=== PATIENT | male | born 1945 | race Caucasian/White ===

== ENCOUNTER → 2020-06-25 09:11 | Outpatient (CLI) | payer OTHER, SELFPAY ==
[2020-06-25 17:44] LABS: SARS-CoV-2 RNA PCR Negative
== END ==
PROVIDERS: PCP Nurse Practitioner Family; Visit Provider Internal Medicine Cardiovascular Disease
DX: Z01.812 Encounter for preprocedural laboratory examination (principal); Z20.822 Contact with and (suspected) exposure to COVID-19
CPT/HCPCS: C9803; U0003; U0005

== ENCOUNTER 2020-06-28 01:28 | Day surgery (SDC) | payer OTHER, SELFPAY ==
[2020-06-25 16:01] VITALS: BMI 31.3
[2020-06-28] VITALS (7 sets, daily range): BP systolic 106–146; BP diastolic 65–104; PULSE 55–96; RESP 12–18; TEMP 35.4–35.7; O2SAT 92–96; BMI 32.3
--- NOTE | 2020-06-28 08:30 | ECG_ITS ---
Measurements Intervals [place] Rate: 95 P: [place]: 0 QRS: 1 QRSD: 104 T: 0 QT: 339 QTc: 427 Interpretive Statements ATRIAL FIBRILLATION CANNOT RULE OUT SEPTAL INFARCT, AGE INDETERMINATE BORDERLINE ST-T WAVE ABNORMALITY- INFERIOR LEADS ABNORMAL ECG Electronically Signed On 06-28-2020 9:08:33 CDT by Arik Cunningham D.O.
[2020-06-28 09:12] LABS: Anion Gap 11 mmol/L (8-16); Blood Urea Nitrogen 25 mg/dL (9-20); Calcium 9.4 mg/dL (8.4-10.2); Carbon Dioxide 27 mmol/L (22-30); Chloride 104 mmol/L (98-107); Estimated CRCL calculation 46 ml/min; Estimated Glomerular Filt Rate 45; Glucose 127 mg/dL (75-110); Magnesium 1.7 mg/dL (1.6-2.3); Potassium 4.4 mmol/L (3.4-5.0); Sodium 142 mmol/L (137-145)
--- NOTE | 2020-06-28 10:24 | P.SEDATION_ITS ---
Moderate Sedation Note-Pt Data Patient Data Diagnosis: Atrial fibrillation Present Complaint: Atrial fibrillation Procedure to be performed/Plan: Electrical cardioversion Moderate sedation Allergies Allergy/AdvReac Type Severity Reaction Status Date / Time No Known Allergies Allergy Mild Verified 06/28/20 09:03 Home Medications Medication Instructions Recorded Confirmed Type atorvastatin 10 mg PO DAILY 06/25/20 06/28/20 History benazepril 40 mg PO DAILY 06/25/20 06/28/20 History dronedarone [Multaq] 400 mg PO BID 06/25/20 06/28/20 History ferrous sulfate 325 mg PO DAILY 06/25/20 06/28/20 History metoprolol tartrate 25 mg PO BID 06/25/20 06/28/20 History pantoprazole 40 mg PO DAILY 06/25/20 06/28/20 History rivaroxaban [Xarelto] 20 mg PO DAILY 06/25/20 06/28/20 History tramadol 50 mg PO BID 06/25/20 06/28/20 History Current Medications: Active Medications Sodium Chloride (Normal Saline Iv) 1,000 mls @ 30 mls/hr IV CONT .Q24H PATRICIA Sedation/Anesthesia: No previous sedation/anesthesia problems (including family history). [facility] Past Medical History Medical History (Updated 06/28/20 @ 10:25 by Tank Nicole MD) Paroxysmal atrial fibrillation Social History Social History Smoking status: Never smoker Substance use: never Substance use type: does not use Living arrangements: with family Mod Sed Physical Exam Physical Exam Pre Procedural Exam: Normal: Appearance, Eyes, Ears, Nose, Neck, Throat, Airway, Lungs, Heart Size, Heart Rate, Neuro Exam, Abdomen, Extremities and Skin and Variation: Heart Rhythm (Irregular irregular) Hours since solid foods: 12 Hours since liquid intake: 12 Internal Medicine - PN: Obj Da Vital Signs Vital Signs: Vital Signs - 24 hr 06/28/20 09:05 Temperature 35.4 C L Pulse Rate 96 Respiratory Rate 18 Blood Pressure 146/104 H Pulse Oximetry 96 Meds/Results Medications: Active Medications Generic Name Dose Route Start Last Admin Trade Name Freq PRN Reason Stop Dose Admin Sodium Chloride 1,000 mls @ 30 mls/hr 06/28/20 08:30 Normal Saline Iv IV CONT .Q24H PATRICIA Labs CBC & Chem 7: 06/28/20 08:53 Labs: Laboratory Results - last 24 hr 06/28/20 08:53 Sodium 142 Potassium 4.4 Chloride 104 Carbon Dioxide 27 Anion Gap 11 BUN 25 H Creatinine 1.50 H Estim Creat Clear Calc 46 Estimated GFR 45 L Glucose 127 H Calcium 9.4 Magnesium 1.7 ASA Classification/Sedation ASA Classification/Sedation ASA Class: II Emergent: No Risks: Risks, benefits and alternatives explained and patient/family accepted plan for sedation. Patient re-evaluated immediately prior to sedation.
--- NOTE | 2020-06-28 10:32 | ECG_ITS ---
Measurements Intervals [place] Rate: 51 P: 28 MD: 191 QRS: -3 QRSD: 102 T: -4 QT: 434 QTc: 402 Interpretive Statements SINUS BRADYCARDIA WITH MARKED SINUS ARRHYTHMIA INCOMPLETE RIGHT BUNDLE BRANCH BLOCK DELAYED PRECORDIAL R/S TRANSITION BORDERLINE T WAVE ABNORMALITY- INFERIOR LEADS BORDERLINE ECG Electronically Signed On 06-28-2020 10:39:14 CDT by Arik Cunningham D.O.
--- NOTE | 2020-06-28 10:38 | WPDCARDVER ---
Cardioversion Cardioversion Date of procedure: 06/28/20 Procedure: 1. Electrical cardioversion 2. Moderate sedation Pre-op diagnosis: Atrial fibrillation Post-op diagnosis: same Indications: Atrial fibrillation Description of procedure: After discussing the risks, benefits alternatives of the procedure the patient agreeable via verbal and written informed consent. Risks discussed included shocking into more problematic heart rhythm, adverse reaction to anesthesia, skin irritation or burn, stroke. After establishing continuous production designer, pulse oxygenation serial blood pressure assessments, moderate sedation was initiated and procedure started. Procedure start time 10:28 a.m. Procedure stop time 10:31 a.m. Medications were administered patient was monitored by Adore Morillo RN Complications: None Blood loss: None Sedation: 2 mg of Versed and 50 mcg of fentanyl x1 Findings: Successful mandaen of sinus rhythm from atrial fibrillation using 150 joules of synchronized biphasic energy Conclusion: 1. Successful electrical cardioversion using 100 joules of biphasic synchronized energy 2. Moderate sedation
--- NOTE | 2020-06-28 11:48 | SUR.PHASEII ---
Patient and educated at discharge following post successful CV today. Information provided on procedure, post-procedure care, follow-up care, medication regimen, and moderate sedation. Patient and state he has a previously scheduled follow up appointment for August 06. VSS at time of discharge. PIV removed and dressing applied. Patient and agreeable to plan of care and have no further questions or concerns at this time. Patient to be escorted to vehicle by staff via WC and picked up by his , who is his feeder driver today.
== END 2020-06-28 12:03 | disposition home or self-care (01) ==
PROVIDERS: PCP Nurse Practitioner Family; Visit Provider Internal Medicine Cardiovascular Disease
PROC: 5A2204Z Restoration of Cardiac Rhythm, Single (ICD-10-PCS; principal; 2020-06-28 10:00)
DX: I48.0 Paroxysmal atrial fibrillation (principal); R06.02 Shortness of breath; R06.00 Dyspnea, unspecified; Z79.01 Long term (current) use of anticoagulants; I27.20 Pulmonary hypertension, unspecified; I10 Essential (primary) hypertension
CPT/HCPCS: 36415; 80048; 83735; 92960; 93005; C9803; J2250; J3010; J7030; U0003; U0005

== ENCOUNTER 2020-11-25 02:16 | Day surgery (SDC) | payer OTHER, SELFPAY ==
[2020-11-25] VITALS (12 sets, daily range): BP systolic 96–131; BP diastolic 59–91; PULSE 55–90; RESP 12–25; TEMP 35.8; O2SAT 95–100; BMI 30.7
--- NOTE | 2020-11-25 07:00 | ECG_ITS ---
Measurements Intervals [place] Rate: 77 P: [place]: 0 QRS: -9 QRSD: 98 T: 4 QT: 359 QTc: 407 Interpretive Statements ATRIAL FIBRILLATION DELAYED PRECORDIAL R/S TRANSITION ABNORMAL ECG Electronically Signed On 11-25-2020 8:36:29 CDT by Arik Cunningham D.O.
[2020-11-25 07:45] LABS: Anion Gap 9 mmol/L (8-16); Blood Urea Nitrogen 39 mg/dL (9-20); Calcium 9.7 mg/dL (8.4-10.2); Carbon Dioxide 25 mmol/L (22-30); Chloride 106 mmol/L (98-107); Estimated CRCL calculation 48 ml/min; Estimated Glomerular Filt Rate 49; Glucose 129 mg/dL (65-110); Potassium 5.1 mmol/L (3.4-5.0); Sodium 140 mmol/L (137-145)
[2020-11-25 07:47] LABS: Magnesium 1.7 mg/dL (1.6-2.3)
--- NOTE | 2020-11-25 08:43 | WPDMODSED ---
Moderate Sedation Note-Pt Data Patient Data Diagnosis: Atrial fibrillation Present Complaint: Atrial fibrillation Procedure to be performed/Plan: Moderate sedation Electrical cardioversion Allergies Allergy/AdvReac Type Severity Reaction Status Date / Time No Known Allergies Allergy Mild Verified 11/25/20 07:33 Home Medications Medication Instructions Recorded Confirmed Type Multaq 400 mg PO BID 06/25/20 11/25/20 History Xarelto 20 mg PO DAILY 06/25/20 11/25/20 History atorvastatin 10 mg PO DAILY 06/25/20 11/25/20 History benazepril 40 mg PO DAILY 06/25/20 11/25/20 History ferrous sulfate 325 mg PO DAILY 06/25/20 11/25/20 History metoprolol tartrate 50 mg PO BID 06/25/20 11/25/20 History pantoprazole 40 mg PO DAILY 06/25/20 11/25/20 History tramadol 50 mg PO BID 06/25/20 11/25/20 History Current Medications: Active Medications Sodium Chloride (Normal Saline Iv) 1,000 mls @ 30 mls/hr IV CONT .Q24H PATRICIA Sedation/Anesthesia: No previous sedation/anesthesia problems (including family history). [facility] Past Medical History Medical History Paroxysmal atrial fibrillation Social History Social History Smoking status: Never smoker Substance use: never Substance use type: does not use Mod Sed Physical Exam Physical Exam Pre Procedural Exam: Normal: Appearance, Eyes, Ears, Nose, Neck, Throat, Airway, Lungs, Heart Size, Heart Rate, Neuro Exam, Abdomen, Extremities and Skin and Variation: Heart Rhythm (Irregular irregular) Hours since solid foods: 12 Hours since liquid intake: 12 Mallampati Classification: class II Internal Medicine - PN: Obj Da Vital Signs Vital Signs: Vital Signs - 24 hr 11/25/20 07:42 11/25/20 08:39 Temperature 35.8 C L Pulse Rate 90 70 Respiratory Rate 16 18 Blood Pressure 123/81 121/80 Pulse Oximetry 100 10 L Meds/Results Medications: Active Medications Generic Name Dose Route Start Last Admin Trade Name Freq PRN Reason Stop Dose Admin Sodium Chloride 1,000 mls @ 30 mls/hr 11/25/20 07:00 Normal Saline Iv IV CONT .Q24H PATRICIA Labs CBC & Chem 7: 11/25/20 07:28 Labs: Laboratory Results - last 24 hr 11/25/20 11/25/20 07:28 07:28 Sodium 140 Potassium 5.1 H Chloride 106 Carbon Dioxide 25 Anion Gap 9 BUN 39 H D Creatinine 1.40 H Estim Creat Clear Calc 48 Estimated GFR 49 L Glucose 129 H Calcium 9.7 Magnesium 1.7 ASA Classification/Sedation ASA Classification/Sedation ASA Class: II Emergent: No Risks: Risks, benefits and alternatives explained and patient/family accepted plan for sedation. Patient re-evaluated immediately prior to sedation.
--- NOTE | 2020-11-25 08:54 | ECG_ITS ---
Measurements Intervals [place] Rate: 53 P: 36 [place]: 190 QRS: -1 QRSD: 99 T: 3 QT: 420 QTc: 394 Interpretive Statements SINUS BRADYCARDIA CANNOT RULE OUT SEPTAL INFARCT, AGE INDETERMINATE BORDERLINE T WAVE ABNORMALITY- INFERIOR LEADS ABNORMAL ECG Electronically Signed On 11-25-2020 9:14:51 CDT by Arik Cunningham D.O.
--- NOTE | 2020-11-25 08:54 | WPDCARDVER ---
Cardioversion Cardioversion Date of procedure: 11/25/20 Procedure: 1. Electrocardioversion 2. Moderate sedation Pre-op diagnosis: Atrial fibrillation Post-op diagnosis: same Indications: Atrial fibrillation Description of procedure: After discussing the risks, benefits alternatives of the procedure patient agreeable via verbal and written informed consent. Risks discussed included stroke, need for surgery, , adverse reaction anesthesia, skin irritation or burn. After establishing continuous telemetry monitoring, pulse oxygenation and serial blood pressure assessments, time-out was taken and the procedure was started. Procedure start time 8:48 a.m. Procedure stop time 8:53 a.m. Complications: None Blood loss: None Sedation: Versed 2 mg IV x1 and fentanyl 50 micro g IV x1 Medications were administered patient was monitored by Sheron Barahona Findings: 150 joules of biphasic synchronized energy was used x1 which converted atrial fibrillation into sinus rhythm Conclusion: 1. Successful sikh of sinus rhythm using 100 joules of biphasic synchronized energy 2. Moderate sedation
== END 2020-11-25 10:40 | disposition home or self-care (01) ==
PROVIDERS: PCP Nurse Practitioner Family; Visit Provider Internal Medicine Cardiovascular Disease
PROC: 5A2204Z Restoration of Cardiac Rhythm, Single (ICD-10-PCS; principal; 2020-11-25 08:30)
DX: I48.19 Other persistent atrial fibrillation (principal); I48.0 Paroxysmal atrial fibrillation; Z79.01 Long term (current) use of anticoagulants; I10 Essential (primary) hypertension; I27.20 Pulmonary hypertension, unspecified
CPT/HCPCS: 36415; 80048; 83735; 92960; 93005; J2250; J3010; J7040

== ENCOUNTER 2023-07-04 12:37 | Outpatient (CLI) | payer OTHER, SELFPAY ==
--- NOTE | 2023-07-04 16:17 | WPDPFTINT ---
PFT Procedure Performed PFT Procedure Performed Plethysmography (Lung Vol) Diffusing Cap (DLCO) Flow Vol Loop Spirometry w/o Bronchodil PFT Interpretation This is a pulmonary function test with spirometry, plethysmography and diffusing capacity. The test was performed and results interpreted in accordance with the 2019 and 2005 ATS/ERS Task Force guidelines respectively using the Global Lung Function Initiative-2012 reference equations. Patient demonstrated good effort and cooperation. Reproducibility criteria were met. The quality of the spirometry maneuver was Grade A. Findings: Spirometry:The contour the inspiratory and expiratory flow tracing are normal. The FVC is 2.44 L, 61% predicted. the FEV1 is 1.94 L, 66% predicted. The FEV1: FVC ratio 79%. Plethysmography: The total lung capacity is 5.30 L, 73% predicted. The functional residual capacity is 1.82 L, 46% predicted. The residual volume is 1.80 L, 67% predicted. Diffusing capacity: The diffusing capacity unadjusted for hemoglobin and carboxyhemoglobin is 15.0, 62% predicted. The diffusing capacity adjusted for alveolar volume is 3.42, 96% predicted. In comparison to previous pulmonary function testing on 03/08/2018 the FVC is decreased from 3.00 L to 2.44 L. The FEV1 is decreased from 2.40 L to 1.94 L. The total lung capacity is unchanged from 5.78 L to 5.30 L. The functional residual capacity is decreased from 3.08 L to 1.82 L. The residual volume is decreased from 2.76 L to 1.80 L. The diffusing capacity unadjusted for hemoglobin and carboxyhemoglobin is unchanged from 14.7 to 15.0. The diffusing capacity adjusted for alveolar volume is unchanged from 3.50 to 3.42. Impression: There is a moderate restrictive ventilatory abnormality. The spirometry is normal without evidence of an obstructive abnormality. The diffusing capacity unadjusted for hemoglobin and carboxyhemoglobin is mildly decreased and normalizes when adjusted for alveolar volume. In comparison to previous pulmonary function testing on 03/08/2018 there has been a greater than anticipated time dependent decrease in the FVC, FEV1, functional residual capacity and residual volume with no significant change in the total lung capacity or diffusing capacity. Clinical correlation is recommended.
== END 2023-07-04 12:38 | disposition home or self-care (01) ==
PROVIDERS: PCP Nurse Practitioner Family; Visit Provider Internal Medicine Cardiovascular Disease
DX: I27.20 Pulmonary hypertension, unspecified (principal)
CPT/HCPCS: 94375; 94726; 94729